=== PATIENT | male | born 1955 | race Caucasian/White ===

== ENCOUNTER → 2020-12-30 | Outpatient (CLI) | payer MEDICARE, OTHER ==
[~2020-12-30] MED LIST: ALTACE10 MG PO; AMBIEN10 MG PO; BAYER CHEWABLE81 MG PO; CLARITIN10 M2 PO; ELIQUIS 5 MG TAB5 MG PO; LOPRESSOR 25 MG25 MG PO; MIRTAZAPINE15 MG PO; NORVASC 5 MG TAB5 MG PO; OXYCODONE HCL10 MG PO; SENNA PLUS TAB1 EACH PO; TOPROL XL 25 MG25 MG PO
== END ==
LOC: HEART 5 10:51
DX: R05 Cough (principal); R06.02 Shortness of breath
CPT/HCPCS: 94010; 94729

== ENCOUNTER → 2021-01-12 | Outpatient (CLI) | payer MEDICARE, OTHER | LOC: KOH-I 11:30 | DX: J84.112 Idiopathic pulmonary fibrosis (principal); J43.9 Emphysema, unspecified; K86.2 Cyst of pancreas; Z95.0 Presence of cardiac pacemaker | CPT/HCPCS: 71250 ==